=== PATIENT | male | born 1965 | race Caucasian/White ===

== ENCOUNTER 2022-02-04 08:29 | Day surgery (SDC) | payer BC ==
[2022-01-31 17:11] VITALS: BMI 24.9
--- NOTE | 2022-02-04 07:37 | P.GSHP ---
History of Present Illness H&P Date: 02/04/22 CHIEF COMPLAINT: GERD and colon screen HISTORY OF PRESENT ILLNESS: The patient is a 56-year-old male who presents with gastroesophageal reflux disease and need for colon screen. Upper and lower endoscopy were offered for further evaluation and management. PAST MEDICAL HISTORY: Please see list. PAST SURGICAL HISTORY: Please see list. MEDICATIONS: Please see list. ALLERGIES: Please see list. SOCIAL HISTORY: No illicit drug use FAMILY HISTORY: No reports of Crohn disease or ulcerative colitis. REVIEW OF ORGAN SYSTEMS: CONSTITUTIONAL: No reports of fevers or chills. GI: Denies any blood in stools or constipation. PHYSICAL EXAM: VITAL SIGNS: Stable GENERAL: Well-developed pleasant in no acute distress. HEENT: No scleral icterus. Extraocular movements grossly intact. Moist buccal mucosa. NECK: Supple without lymphadenopathy. CHEST: Unlabored respirations. Equal bilateral excursions. CARDIOVASCULAR: Regular rate and rhythm. Distal 2+ pulses. ABDOMEN: Soft, nondistended. MUSCULOSKELETAL: No clubbing, cyanosis, or edema. ASSESSMENT: 1. Gastroesophageal reflux disease 2. Colon screen. PLAN: 1. Recommend proceeding with an upper and lower endoscopy Past Medical History Past Medical History: COPD, GERD/Reflux, Hyperlipidemia, Hypertension, Thyroid Disorder History of Any Multi-Drug Resistant Organisms: None Reported Additional Past Surgical History / Comment(s): testicular torsion,zhao feet procedures on arches Past Anesthesia/Blood Transfusion Reactions: No Reported Reaction Additional Past Anesthesia/Blood Transfusion Reaction / Comment(s): no problems with prior blood transfusion as an Smoking Status: Current every day smoker - Past Family History Mother Family Medical History: No Reported History Medications and Allergies Home Medications Medication Instructions Recorded Confirmed Type Atorvastatin [Lipitor] 10 mg PO DAILY 01/31/22 01/31/22 History Collagen Support 1 tab PO DAILY 01/31/22 01/31/22 History Famotidine 20 mg PO QAM 01/31/22 01/31/22 History Levothyroxine Sodium 150 mcg PO QAM 01/31/22 01/31/22 History Losartan [Cozaar] 50 mg PO QAM 01/31/22 01/31/22 History Magnesium 500 mg PO HS 01/31/22 01/31/22 History Multivit-Min/FA/Lycopen/Lutein 1 each PO DAILY 01/31/22 01/31/22 History [Centrum Silver Men Tablet] Turmeric Root Extract [Turmeric] 500 mg PO DAILY 01/31/22 01/31/22 History allopurinoL [Zyloprim] 100 mg PO DAILY 01/31/22 01/31/22 History Allergies Allergy/AdvReac Type Severity Reaction Status Date / Time No Known Allergies Allergy Verified 01/31/22 16:56
[2022-02-04 08:49] VITALS: TEMP 97.2
[2022-02-04] MEDS ORDERED: LACTATED RINGERS 1,000 ML IV ONE (08:50)
[2022-02-04] MEDS ORDERED: LIDOCAINE 2% INJ 20 MG/ML (2 ML VIAL) ONE (09:25)
[2022-02-04] MEDS ORDERED: PROPOFOL 10 MG/ML 20 ML VIAL IV ONE (09:25)
--- NOTE | 2022-02-04 09:44 | P.PCN ---
Date of Procedure: 02/04/22 Description of Procedure: PREOPERATIVE DIAGNOSIS: Gastroesophageal reflux disease. Gastric ulcers POSTOPERATIVE DIAGNOSIS: Gastritis with bleeding Gastroesophageal reflux disease with esophagitis Duodenitis OPERATION: Esophagogastroduodenoscopy with biopsies along antrum, duodenum and GE junction SURGEON: Nakita Mack MD ANESTHESIA: MAC. INDICATIONS: The patient is a 56-year-old male who presents with reflux disease and gastric ulcer. Benefits and risks of the procedure were described. Informed consent was obtained. DESCRIPTION: The patient was brought into the endoscopy suite and laid in the left lateral decubitus position. An Olympus gastroscope was passed along the posterior oropharynx down to the distal esophagus where the squamocolumnar junction was encountered at 40 cm from the incisors. The stomach was entered and no bile reflux was found. Additional findings are listed below. Biopsies with cold forceps were obtained of the antrum. The first through third portion of the duodenum was examined. Retroflexion of the scope confirmed Hill grade 2 lower esophageal valve. The squamocolumnar junction demonstrated LA grade B erosive esophagitis. The stomach was desufflated. The patient tolerated the procedure well. FINDINGS: Squamocolumnar junction 40 cm from the incisors. Diaphragmatic hiatus at 41 cm. Hiatal hernia, 1 cm Hill grade 2 lower esophageal valve. LA grade B erosive esophagitis. Active duodenitis. Acute gastritis with effective bleeding, gastric hernia RECOMMENDATIONS: 1. Carafate 1 g twice a day 2. Protonix 40 mg twice a day for acute GI bleeding
[2022-02-04 10:04] VITALS: RESP 18
--- NOTE | 2022-02-04 10:10 | P.PCN ---
Date of Procedure: 02/04/22 Description of Procedure: PREOPERATIVE DIAGNOSIS: Abnormal CT for colitis/cancer Right lower quadrant abdominal pain POSTOPERATIVE DIAGNOSIS: Cecal diverticulosis Cecal ulcer Ascending colon diverticulosis OPERATION: Colonoscopy to the ileocecal valve and appendiceal orifice, cecum Colonoscopy with cold forceps biopsy at cecal ulcer SURGEON: Nakita Mack MD. ANESTHESIA: MAC. INDICATIONS: The patient is an 56-year-old male who presents with right lower quadrant abdominal pain including abnormal computed tomography scan for colitis versus cancer at the cecum. Colonoscopy offered for diagnostic assessment. Benefits and risks were described and informed consent was obtained. DESCRIPTION OF PROCEDURE: The patient had undergone Sutab prep. The patient had been brought into the operating room and laid in the left lateral decubitus position. After adequate intravenous sedation, the rectum was examined with 2% lidocaine jelly. The prostate was unremarkable. External hemorrhoids were encountered. The rectal tone was within normal limits. No lesions were palpated in the rectal vault. An Olympus colonoscope was advanced until the cecum, ileocecal valve and appendiceal orifice were clearly viewed. The prep was good. Cecal including ascending colon diverticulosis was found. Cecal ulceration at the ileocecal valve extended to the appendiceal orifice was found of 15 mm x 2 mm. Multiple biopsies were obtained. Retroflexion of the scope demonstrated grade 2 internal hemorrhoids without active bleeding or inflammation. The colon was desufflated. The patient had tolerated the procedure well. Withdrawal time was over 6 minutes. FINDINGS: Aronchick preparation quality scale 2 (1-5) Internal hemorrhoids, grade 3 External hemorrhoids, grade 3. No arteriovenous malformations. Cecal diverticulosis and descending colon diverticulosis Cecal ulceration 15 mm x 2 mm involving appendiceal orifice to ileocecal valve biopsied No polyps identified RECOMMENDATIONS: Await biopsies or further recommendations. Otherwise, repeat colonoscopy in 5 years, 2026 Plan - Discharge Summary Discharge Rx Participant: No New Discharge Prescriptions: No Action Losartan [Cozaar] 50 mg PO QAM Magnesium 500 mg PO HS Multivit-Min/FA/Lycopen/Lutein [Centrum Silver Men Tablet] 1 each PO DAILY allopurinoL [Zyloprim] 100 mg PO DAILY Levothyroxine Sodium 150 mcg PO QAM Atorvastatin [Lipitor] 10 mg PO DAILY Famotidine 20 mg PO QAM Collagen Support 1 tab PO DAILY Turmeric Root Extract [Turmeric] 500 mg PO DAILY Discharge Medication List Atorvastatin [Lipitor] 10 mg PO DAILY 01/31/22 [History] Collagen Support 1 tab PO DAILY 01/31/22 [History] Famotidine 20 mg PO QAM 01/31/22 [History] Levothyroxine Sodium 150 mcg PO QAM 01/31/22 [History] Losartan [Cozaar] 50 mg PO QAM 01/31/22 [History] Magnesium 500 mg PO HS 01/31/22 [History] Multivit-Min/FA/Lycopen/Lutein [Centrum Silver Men Tablet] 1 each PO DAILY 01/31/22 [History] Turmeric Root Extract [Turmeric] 500 mg PO DAILY 01/31/22 [History] allopurinoL [Zyloprim] 100 mg PO DAILY 01/31/22 [History]
[2022-02-04 10:43] VITALS: BP 148/88; PULSE 53
[2022-02-04 11:14] LABS: ALT 20 U/L (4-49); AST 20 U/L (17-59); African American GFR (CKD) >90 (>60 ml/min/1.73 sqM); Albumin 1.8 g/dL (3.5-5.0); Alkaline Phosphatase 40 U/L (38-126); Anion Gap 8 mmol/L; Blood Urea Nitrogen 5 mg/dL (9-20); Calcium 7.2 mg/dL (8.4-10.2); Carbon Dioxide 16 mmol/L (22-30); Chloride 109 mmol/L (98-107); Glucose 63 mg/dL (74-99); Non-African American GFR(CKD) >90 (>60 ml/min/1.73 sqM); Sodium 133 mmol/L (137-145); Total Bilirubin 0.8 mg/dL (0.2-1.3); Total Protein 3.3 g/dL (6.3-8.2)
[2022-02-04 11:15] LABS: Basophils % (A) 0 %; Eosinophils # (A) 0.1 k/uL (0-0.7); Eosinophils % (A) 5 %; HCT 24.5 % (39.0-53.0); HGB 7.9 gm/dL (13.0-17.5); Lymphocytes # (A) 0.6 k/uL (1.0-4.8); Lymphocytes % (A) 22 %; MCH 34.3 pg (25.0-35.0); MCHC 32.4 g/dL (31.0-37.0); MCV 105.7 fL (80.0-100.0); Macrocytosis Slight; Mean Platelet Volume 8.2; Monocytes # (A) 0.2 k/uL (0-1.0); Monocytes % (A) 8 %; Neutrophils # (A) 1.8 k/uL (1.3-7.7); Neutrophils % (A) 62 %; Platelet Count 140 k/uL (150-450); RBC 2.32 m/uL (4.30-5.90); RDW 12.8 % (11.5-15.5); WBC 2.8 k/uL (3.8-10.6)
--- NOTE | 2022-02-05 10:36 | P.PN ---
Progress Note - Text Progress Note Date: 02/04/22 Discussion with nurse regarding labs. Patient's hemoglobin 7.9. Patient found to have active bleeding in stomach. Start of Carafate and high-dose Protonix reviewed. Patient will follow-up in the office in 1 week with pathology results available and additional recommendations pending.
== END 2022-02-04 12:15 | disposition home or self-care (01) ==
LOC: ORWHC2ENDO 08:29
PROVIDERS: ATTEND Surgery Plastic and Reconstructive Surgery
DX: K21.00 Gastro-esophageal reflux disease with esophagitis, without bleeding (principal); K57.30 Diverticulosis of large intestine without perforation or abscess without bleeding; K63.3 Ulcer of intestine; K64.2 Third degree hemorrhoids; K29.51 Unspecified chronic gastritis with bleeding; K29.80 Duodenitis without bleeding; K52.9 Noninfective gastroenteritis and colitis, unspecified; K31.A19 Gastric intestinal metaplasia without dysplasia, unspecified site; Z79.899 Other long term (current) drug therapy; Z79.890 Hormone replacement therapy; F17.200 Nicotine dependence, unspecified, uncomplicated; I10 Essential (primary) hypertension; E78.5 Hyperlipidemia, unspecified; J44.9 Chronic obstructive pulmonary disease, unspecified; E07.9 Disorder of thyroid, unspecified
CPT/HCPCS: 88305; 80053; 85025; 45380; 43239; J2704; J2001

== ENCOUNTER → 2022-02-12 | Outpatient (CLI) | payer BC ==
[2022-02-12 15:34] LABS: INR 0.9 (<1.2); Partial Thromboplastin Time 25.1 sec (22.0-30.0); Prothrombin Time 9.9 sec (9.0-12.0)
[2022-02-13 01:07] LABS: Basophils # (A) 0.03 X 10*3/uL (0.00-0.10); Basophils % (A) 0.5 %; Eosinophils # (A) 0.29 X 10*3/uL (0.04-0.35); Eosinophils % (A) 5.2 %; HCT 40.3 % (39.6-50.0); HGB 12.8 g/dL (13.0-17.0); Immature Grans, Automated 0.2 %; Lymphocytes # (A) 1.44 X 10*3/uL (0.90-5.00); Lymphocytes % (A) 25.9 %; MCH 32.7 pg (27.0-32.0); MCHC 31.8 g/dL (32.0-37.0); MCV 102.8 fL (80.0-97.0); Mean Platelet Volume 10.1 fL (9.5-12.2); Monocytes # (A) 0.73 X 10*3/uL (0.20-1.00); Monocytes % (A) 13.1 %; NRBC Per 100 WBC 0 /100 WBCS (0.0-0.0); Neutrophils # (A) 3.07 X 10*3/uL (1.80-7.70); Neutrophils % (A) 55.1 %; Platelet Count 239 X 10*3/uL (140-440); RBC 3.92 X 10*6/uL (4.40-5.60); RDW 12.5 % (11.5-14.5); WBC 5.57 X 10*3/uL (4.50-10.00)
[2022-02-13 01:09] LABS: % Iron Saturation 58.93 (15.00-50.00); ALT 30 U/L (10-49); AST 27 U/L (14-35); African American GFR (CKD) 95.8 (60.0-200.0); Albumin 4.6 g/dL (3.8-4.9); Albumin/Globulin Ratio 2.48 (1.60-3.17); Alkaline Phosphatase 97 U/L (41-126); BUN/Creat Ratio 11.81 Ratio (12.00-20.00); Blood Urea Nitrogen 11.8 mg/dL (9.0-27.0); Calcium 9.4 mg/dL (8.7-10.3); Carbon Dioxide 24.3 mmol/L (20.0-27.5); Chloride 107 mmol/L (96-109); Globulin 1.9 g/dL (1.6-3.3); Glucose 108 mg/dL (70-110); Iron 132 ug/dL (65-175); Non-African American GFR(CKD) 82.7 (60.0-200.0); Phosphorus 3.6 mg/dL (2.4-5.1); Potassium 3.8 mmol/L (3.5-5.5); Sodium 142 mmol/L (135-145); Total Iron Binding Capacity 224 ug/dL (228-460); Total Protein 6.4 g/dL (6.2-8.2)
[2022-02-13 01:52] LABS: Chol/HDL Ratio 3.66 Ratio; LDL Cholesterol,Calculated 48.6 mg/dL (0.0-131.0)
[2022-02-14 06:50] LABS: Vit B1(Thiamine) 83 ug/L (38-122)
== END | disposition home or self-care (01) ==
LOC: LABWHC1 14:49
PROVIDERS: ATTEND Surgery Plastic and Reconstructive Surgery
DX: E66.01 Morbid (severe) obesity due to excess calories (principal); E89.1 Postprocedural hypoinsulinemia; E21.1 Secondary hyperparathyroidism, not elsewhere classified; D50.8 Other iron deficiency anemias; E44.0 Moderate protein-calorie malnutrition; E55.9 Vitamin D deficiency, unspecified; K74.1 Hepatic sclerosis; N19 Unspecified kidney failure; K50.90 Crohn's disease, unspecified, without complications
CPT/HCPCS: 36415; 80053; 80061; 82306; 82525; 82607; 82728; 82746; 83036; 83540; 83550; 83735; 83970; 84100; 84134; 84255; 84425; 84443; 84590; 84630; 85025; 85610; 85730

== ENCOUNTER 2022-04-04 11:17 | Day surgery (SDC) | payer BC, OTHER ==
--- NOTE | 2022-04-04 10:02 | P.GSHP ---
History of Present Illness H&P Date: 04/04/22 CHIEF COMPLAINT: Inguinal hernia, bilateral HISTORY OF PRESENT ILLNESS: The patient is a 56-year-old male who presents with a history of swelling and pain along the both groins. He had complete cardiac risk assessment including correction of pre-existing anemia. Now he presents for repair of his inguinal hernia. PAST MEDICAL HISTORY: Please see list. PAST SURGICAL HISTORY: Please see list. MEDICATIONS: Please see list. ALLERGIES: Please see list. SOCIAL HISTORY: No illicit drug use FAMILY HISTORY: No reports of Crohn disease or ulcerative colitis. REVIEW OF ORGAN SYSTEMS: CONSTITUTIONAL: No reports of fevers or chills. No reports of weight loss despite prior attempts. GI: Recent colitis resolved. PHYSICAL EXAM: VITAL SIGNS: Stable GENERAL: Well-developed pleasant male in no acute distress. HEENT: No scleral icterus. Extraocular movements grossly intact. Moist buccal mucosa. NECK: Supple without lymphadenopathy. CHEST: Unlabored respirations. Equal bilateral excursions. CARDIOVASCULAR: Regular rate and rhythm. Distal 2+ pulses. ABDOMEN: Soft, nondistended. No peritoneal signs. Palpable defect of the bilateral groin. MUSCULOSKELETAL: No clubbing, cyanosis, or edema. ASSESSMENT: 1. Inguinal hernia, bilateral 2. Recent colitis with anemia PLAN: 1. Recommend proceeding with a robotic inguinal repair with mesh with bilateral approach. 2. Benefits and risks of surgical intervention was discussed including possibility of open technique. 3. DVT prophylaxis. 4. Antibiotic prophylaxis. 5. Cardiac risk assessment obtained 6. He is elevated risk due to pre-existing hypertensive heart disease and anemia Past Medical History Past Medical History: COPD, GERD/Reflux, Hyperlipidemia, Hypertension, Thyroid Disorder History of Any Multi-Drug Resistant Organisms: None Reported Additional Past Surgical History / Comment(s): testicular torsion,zhao feet procedures on arches Past Anesthesia/Blood Transfusion Reactions: No Reported Reaction Additional Past Anesthesia/Blood Transfusion Reaction / Comment(s): no problems with prior blood transfusion as an Smoking Status: Current every day smoker - Past Family History Mother Family Medical History: No Reported History Medications and Allergies Home Medications Medication Instructions Recorded Confirmed Type Atorvastatin [Lipitor] 10 mg PO DAILY 01/31/22 02/04/22 History Collagen Support 1 tab PO DAILY 01/31/22 02/04/22 History Levothyroxine Sodium 150 mcg PO QAM 01/31/22 02/04/22 History Losartan [Cozaar] 50 mg PO QAM 01/31/22 02/04/22 History Magnesium 500 mg PO HS 01/31/22 02/04/22 History Multivit-Min/FA/Lycopen/Lutein 1 each PO DAILY 01/31/22 02/04/22 History [Centrum Silver Men Tablet] allopurinoL [Zyloprim] 100 mg PO DAILY 01/31/22 02/04/22 History Pantoprazole Sodium [Protonix] 40 mg PO BID #60 tab 02/05/22 Rx Sucralfate [Carafate] 1 gm PO BID #60 tablet 02/05/22 Rx Allergies Allergy/AdvReac Type Severity Reaction Status Date / Time No Known Allergies Allergy Verified 02/04/22 08:40
[~2022-04-04 11:17] MED LIST: ACETAMINOPHEN TAB 500 MG TAB PO PRN; GABAPENTIN 300 MG CAP PO PRN; HEPARIN SODIUM,PORCINE/PF 5,000 UNIT/0.5 ML SYRINGE SQ PRN; TAMSULOSIN 0.4 MG CAP.ER.24H PO PRN
[2022-04-04] MEDS ORDERED: LACTATED RINGERS 1,000 ML IV SCH (12:10)
[2022-04-04] MEDS ORDERED: ONDANSETRON 4 MG/2 ML VIAL IVP ONE (12:10)
[2022-04-04] MEDS ORDERED: DEXAMETHASONE SOD PHOSPHATE 4 MG/ML 1 ML VIAL IV ONE (12:10)
[2022-04-04 12:32] VITALS: RESP 16; TEMP 97.8
[2022-04-04] MEDS ORDERED: MIDAZOLAM 2 MG/2 ML VIAL IVP ONE (12:45)
[2022-04-04] MEDS ORDERED: fentaNYL (PF) 50 MCG/ML 2 ML AMP IVP ONE (12:45)
--- NOTE | 2022-04-04 12:57 | P.ANPRN ---
Procedure Note - Anesthesia - Nerve Block Performed Bilateral Transversus Abdominis Single Time Out Performed: Yes (1244) Date of Procedure: 04/04/22 Procedure Start Time: 12:45 Procedure Stop Time: 12:52 Location of Patient: PreOp Indication: Acute Post-Operative Pain, Requested by Surgeon Specifically requested for management of pain by : Nakita Mack Sedation Type: Sedate with meaningful contact maintained Preparation: Sterile Prep Position: Supine Catheter: None Needle Types: Pajunk Needle Gauge: 21 Ultrasound used to visualize needle placement: Yes Ultrasound used to observe medication spread: Yes Injectate: 0.5% Ropivacaine (see comment for volume) (15cc + 15cc nacl pf each side) Blood Aspirated: No Pain Paresthesia on Injection Noted: No Resistance on Injection: Normal Image Stored and Saved: Yes Events: Uneventful and Well Tolerated
[2022-04-04 13:16] LABS: Basophils % (A) 0 %; Eosinophils # (A) 0.3 k/uL (0-0.7); Eosinophils % (A) 5 %; HCT 41.4 % (39.0-53.0); Lymphocytes # (A) 1.1 k/uL (1.0-4.8); Lymphocytes % (A) 23 %; MCH 32.7 pg (25.0-35.0); Mean Platelet Volume 7.1; Monocytes # (A) 0.4 k/uL (0-1.0); Monocytes % (A) 8 %; Neutrophils % (A) 61 %; Platelet Count 203 k/uL (150-450); RBC 4.06 m/uL (4.30-5.90); RDW 12.3 % (11.5-15.5); WBC 4.9 k/uL (3.8-10.6)
[2022-04-04 13:17] LABS: HGB 13.3 gm/dL (13.0-17.5)
[2022-04-04] MEDS ORDERED: SUCCINYLCHOLINE CHLORIDE 200 MG/10 ML VIAL IV ONE (13:40)
[2022-04-04] MEDS ORDERED: GLYCOPYRROLATE 0.2 MG/ML 2 ML VIAL ONE (13:40)
[2022-04-04] MEDS ORDERED: SODIUM CHLORIDE 0.9% (PF) 10 ML VIAL ONE (13:40)
[2022-04-04] MEDS ORDERED: fentaNYL (PF) 50 MCG/ML 2 ML AMP ONE (13:40)
[2022-04-04] MEDS ORDERED: LIDOCAINE 2% INJ 20 MG/ML (2 ML VIAL) ONE (13:40)
[2022-04-04] MEDS ORDERED: MIDAZOLAM 2 MG/2 ML VIAL ONE (13:40)
[2022-04-04] MEDS ORDERED: PROPOFOL 10 MG/ML 20 ML VIAL IV ONE (13:40)
[2022-04-04] MEDS ORDERED: NEOSTIGMINE 1 MG/ML 10 ML VIAL ONE (13:40)
[2022-04-04] MEDS ORDERED: ROCURONIUM 10 MG/ML (5 ML VIAL) IV ONE (13:40)
[2022-04-04] MEDS ORDERED: ROPIVACAINE 5 MG/ML 30 ML VIAL ONE (13:40)
[2022-04-04] MEDS ORDERED: BUPIVACAIN-EPI 0.25%-1:200,000 30 ML VIAL SQ ONE ×2 (14:07→14:13)
[2022-04-04] MEDS ORDERED: LACTATED RINGERS 1,000 ML IV ONE ×3 (15:25→17:06)
[2022-04-04] MEDS: HYDROmorphone 0.5 MG/0.5 ML SYRINGE IVP PRN ×3 (15:44→16:06)
[2022-04-04 17:12] VITALS: BP 133/79; PULSE 85
--- NOTE | 2022-04-04 17:17 | P.OP ---
Date of Procedure: 04/04/22 Description of Procedure: SURGEON: NAKITA MACK MD PREOPERATIVE DIAGNOSES: 1. Initial left inguinal hernia. 2. Chronic iron deficiency anemia due to blood loss 3. Hypertensive heart disease 4. Gout 5. History of Gastric ulcers 6. History of Colitis 7. Hyperlipidemia 8. Tobacco use 9. Tobacco cessation and counseling POSTOPERATIVE DIAGNOSES: 1. Initial left inguinal hernia, direct, 3-cm 2. Chronic iron deficiency anemia due to blood loss 3. Hypertensive heart disease 4. Gout 5. History of Gastric ulcers 6. History of Colitis 7. Hyperlipidemia 8. Tobacco use 9. Tobacco cessation and counseling 10. Initial right inguinal hernia, indirect, 1-cm OPERATION: 1. Robotic-assisted da Charbel Xi laparoscopic repair of initial reducible right indirect inguinal hernia with mesh, 11.[address] 2. Robotic-assisted da Charbel Xi laparoscopic repair of initial reducible left direct inguinal hernia with mesh, 11.[address] ANESTHESIA: General with local anesthetic, regional ESTIMATED BLOOD LOSS: 5 mL. SPECIMENS: 1. Right inguinal hernia sac 2. Left inguinal hernia sac COMPLICATIONS: None. FINDINGS: 1. Reducible initial right inguinal hernia, 1 cm, indirect 2. Left inguinal hernia, 3 cm, indirect 3. Cecum unremarkable for colitis including appendix unremarkable INDICATIONS: The patient is a 56-year-old gentleman who presents with history of left inguinal hernia. Computed tomography scan demonstrated possible right swelling. Cardiac risk assessment including tobacco cessation counseling was performed. Now presents for definitive surgical intervention. Laparoscopic versus open and robotic approaches were discussed. Benefits and risks including bleeding, infection, injury to the vas deferens as well as sterility and chronic groin pain were reviewed. Placement of mesh was also described. Informed consent was obtained. DESCRIPTION: In the preoperative area, the patient was marked with indelible marker along the inguinal hernia. The patient was brought to the operating room and initially laid in supine position. The abdomen had been prepped and draped in standard sterile fashion. Ioban draping was also placed. Prior to incision, a timeout protocol was confirmed with surgical team regarding patient's name including procedures to be performed and location along the right groin. Initial positioning for the robotic assisted ports were selected whereby 20 cm superior to the target anatomy, 0 degree 5 mm laparoscopic trocar entry was performed at the left upper quadrant. The abdomen was insufflated to 15 mmHg which he had tolerated well. Diagnostic laparoscopy demonstrated no injury to bowel, viscera or mesentery. Bilateral inguinal hernias were identified. A left direct 3 cm inguinal hernia and a right indirect 1 cm inguinal hernia was identified. Next, along the epigastrium, 8 mm robot trocar was placed. An 8-mm robotic trocar was placed under direct visualization at the right upper quadrant. An 8 mm port was placed at the left upper quadrant. All trocars were positioned between 10-cm apart from each other. An accessory 12 mm trocar was placed at the right lateral abdominal wall for exchange of instruments, sutures and mesh. The ilustrum XI robot was primed, draped, prepared for docking along upper abdomen of the patient. The patient was positioned 21 steep Trendelenburg position I then went to the ilustrum Xi console. The driller's assistant was at bedside for exchange of the robot arms and equipment. The left direct inguinal hernia sac was evaginated whereby the peritoneum was scored using Endo scissors with cautery. Once completely reduced into the abdomi nal cavity, the peritoneal sac of the hernia was stripped. The sac was resected and then passed off for further pathological analysis. The size of the hernia defect was 3 cm with intraoperative films obtained. Using a nonabsorbable 2-0 VLOC, the peritoneal defect of the left inguinal hernia site was closed using pursestring. The defect was found to be completely closed with complete reduction of the left direct inguinal hernia were confirmed. As an onlay, an 11.[address] mesh by [employer] was initially cut in half and entered into the abdominal cavity via the 8 mm trocar. The mesh was tacked to the pelvis using absorbable 2-0 VLOC sutures. Next, careful attention along the right groin demonstrated an indirect 1-cm tract. The right inguinal hernia sac was evaginated whereby the peritoneum was scored using Endo scissors with cautery. Once completely reduced into the abdominal cavity, the peritoneal sac of the hernia was stripped. The sac was resected and then passed off for further pathological analysis. The size of the hernia defect was 1 cm with intraoperative films obtained. Using non-absorbable 2-0 VLOC, the peritoneal defect of the right inguinal hernia site was closed using a running suture. The defect was found to be completely closed with complete reduction of the right indirect inguinal hernia was confirmed. As an onlay, an 11.[address] mesh by [employer]AR was initially cut in half and entered into the abdominal cavity via the 8 mm trocar. The mesh was tacked to the pelvis using absorbable 2-0 VLOC 9-inch length sutures. The robot was undocked from the patient's bedside. I then rescrubbed into the case. Insufflation was released from the abdominal cavity and all instruments were removed from the abdominal cavity. The rest of incisions were reapproximated using 4-0 Monocryl in a running subcuticular fashion. Local anesthetic was placed along the incision including for a bilateral groin block. Incisions were cleansed using dilute hydrogen peroxide. Liquid glue was applied to the skin. At the end of the procedure, the needle, sponge and instrument counts had been verified correct by the surgical processor. The patient had tolerated the procedure well and was taken to the postanesthesia care unit in stable condition. Plan - Discharge Summary New Discharge Prescriptions: New Acetaminophen Tab [Tylenol Tab] 1,000 mg PO Q6HR PRN #30 tablet PRN Reason: Pain Cyclobenzaprine [Flexeril] 10 mg PO TID #30 tab Simethicone [Gas-X] 125 mg PO AC-TID PRN #20 capsule PRN Reason: Pain Continue Losartan [Cozaar] 50 mg PO QAM Magnesium 500 mg PO HS Multivit-Min/FA/Lycopen/Lutein [Centrum Silver Men Tablet] 1 each PO DAILY Sucralfate [Carafate] 1 gm PO BID #60 tablet allopurinoL [Zyloprim] 100 mg PO DAILY Levothyroxine Sodium 150 mcg PO QAM Atorvastatin [Lipitor] 10 mg PO DAILY Collagen Support 1 tab PO DAILY Pantoprazole Sodium [Protonix] 40 mg PO BID #60 tab Discharge Medication List Atorvastatin [Lipitor] 10 mg PO DAILY 01/31/22 [History] Collagen Support 1 tab PO DAILY 01/31/22 [History] Levothyroxine Sodium 150 mcg PO QAM 01/31/22 [History] Losartan [Cozaar] 50 mg PO QAM 01/31/22 [History] Magnesium 500 mg PO HS 01/31/22 [History] Multivit-Min/FA/Lycopen/Lutein [Centrum Silver Men Tablet] 1 each PO DAILY 01/31/22 [History] allopurinoL [Zyloprim] 100 mg PO DAILY 01/31/22 [History] Pantoprazole Sodium [Protonix] 40 mg PO BID #60 tab 02/05/22 [Rx] Sucralfate [Carafate] 1 gm PO BID #60 tablet 02/05/22 [Rx] Acetaminophen Tab [Tylenol Tab] 1,000 mg PO Q6HR PRN #30 tablet 04/04/22 [Rx] Cyclobenzaprine [Flexeril] 10 mg PO TID #30 tab 04/04/22 [Rx] Simethicone [Gas-X] 125 mg PO AC-TID PRN #20 capsule 04/04/22 [Rx] Follow up Appointment(s)/Referral(s): Nakita Mack MD [STAFF PHYSICIAN] - 04/09/22 (TELEHEALTH) Patient Instructions/Handouts: *Surgery [facility] - Managing Your Pain After Surgery Without Opioids, How to Stop Smoking (DC), Laparoscopic Herniorrhaphy (DC), Inguinal Hernia Repair (GEN) Activity/Diet/Wound Care/Special Instructions: Using antibacterial soap. No lifting over 4 pounds 4 weeks, May 06November shower. No bathtub soaks for 2 weeks, Apr 18 Use ice along incisions for today to prevent swelling. Take tylenol, flexeril, simethicone scheduled for 3 days for best pain relief Discharge Disposition: HOME SELF-CARE
[2022-04-04] MEDS ORDERED: TAMSULOSIN 0.4 MG CAP.ER.24H PO STA (17:31)
== END 2022-04-04 18:07 | disposition home or self-care (01) ==
LOC: OR 11:17
PROVIDERS: ATTEND Surgery Plastic and Reconstructive Surgery
DX: K40.20 Bilateral inguinal hernia, without obstruction or gangrene, not specified as recurrent (principal); G89.18 Other acute postprocedural pain; J44.9 Chronic obstructive pulmonary disease, unspecified; K21.9 Gastro-esophageal reflux disease without esophagitis; I10 Essential (primary) hypertension; E78.5 Hyperlipidemia, unspecified; E07.9 Disorder of thyroid, unspecified; N44.00 Torsion of testis, unspecified; F17.200 Nicotine dependence, unspecified, uncomplicated; Z79.890 Hormone replacement therapy; Z79.899 Other long term (current) drug therapy
CPT/HCPCS: 49650; 64488; 85025; 88302; C1781; J2250; J0330; J1100; J2710; J0690; J2405; J3010; J2795; J2704; J1170; J1644; J2001